=== PATIENT | female | born 1990 | race American Indian/Alaskan Native ===

== ENCOUNTER 2023-04-11 11:30 | Emergency (ER) | payer OTHER ==
[~2023-04-11] VITALS: Ht 160 cm; Wt 73.6 kg
[2023-04-11] MEDS ORDERED: FLONASE ALLERG9.9 ML NAS (12:02)
[2023-04-11] MEDS ORDERED: HYDROXYZINE HCL25 MG PO (12:02)
[2023-04-11 12:14] VITALS: BP 145/79
== END 2023-04-11 12:14 | disposition home or self-care (01) ==
LOC: ED 11:30
DX: Z03.89 Encounter for observation for other suspected diseases and conditions ruled out (principal)
CPT/HCPCS: Q0177